=== PATIENT | male | born 1940 | race Caucasian/White ===

== ENCOUNTER 2021-10-12 11:25 | Outpatient (CLI) | payer MEDICARE, SELFPAY ==
[2021-10-12 12:13] LABS: Hematocrit 48.9 % (42.0-52.0); Hemoglobin 15.9 g/dL (14.0-18.0); Mean Corpuscular HGB Conc 32.5 g/dl (32-36); Mean Corpuscular Hemoglobin 31.8 pg (26-34); Mean Corpuscular Volume 97.8 fl (80-100); Mean Platelet Volume 9.7 fl (7.4-10.4); Platelet Count Result 309 k/mm3 (150-375); Red Cell Distribution Width 13.1 % (11.5-14.5); White Blood Count 9.4 K/mm3 (4.5-10.0)
[2021-10-12 12:23] LABS: Alanine Aminotransferase 20 U/L (4-50); Albumin Level 4.3 g/dL (3.5-5.1); Alkaline Phosphatase 63 U/L (38-126); Anion Gap 6 mmol/L (8-16); Aspartate Amino Transferase 24 U/L (17-59); Bilirubin,Total 0.4 mg/dL (0.2-1.3); Blood Urea Nitrogen 17 mg/dL (9-20); Calcium 9.5 mg/dL (8.4-10.2); Carbon Dioxide 30 mmol/L (22-30); Chloride 99 mmol/L (98-107); Cholesterol 167 mg/dL (0-200); Estimated Glomerular Filt Rate > 60; Glucose 107 mg/dL (65-110); HDL Direct 46 mg/dL; Potassium 4.6 mmol/L (3.4-5.0); Sodium 135 mmol/L (137-145); Triglycerides 54 mg/dL (<150)
[2021-10-12 12:34] LABS: LDL Cholesterol Direct 101 mg/dL
[2021-10-12 12:54] LABS: Prostate Specific Antigen 2.2 ng/mL (< OR = 4.0)
[2021-10-12 13:08] LABS: Vitamin D 25 Hydroxy 52.5 ng/mL
[2021-10-12 14:16] LABS: Creatinine Urine 38.5 mg/dL
[2021-10-12 14:20] LABS: MALB Creatinine Ratio 23.1 mg/g (0-30); Microalbumin Urine Random 8.9 mg/L (0-16.7)
[2021-10-12 14:27] LABS: Hemoglobin A1C 5.9 % (<5.7)
== END 2021-10-12 11:26 | disposition home or self-care (01) ==
LOC: ANHLAB 11:31
PROVIDERS: PCP Family Medicine; Visit Provider Family Medicine
DX: E11.9 Type 2 diabetes mellitus without complications (principal); I10 Essential (primary) hypertension; E78.2 Mixed hyperlipidemia; Z13.220 Encounter for screening for lipoid disorders; Z12.5 Encounter for screening for malignant neoplasm of prostate; E55.9 Vitamin D deficiency, unspecified
CPT/HCPCS: 36415; 80048; 80061; 80076; 82043; 82306; 83036; 84153; 84443; 85027; G0103

== ENCOUNTER 2021-11-23 12:10 | Outpatient (CLI) | payer MEDICARE, SELFPAY ==
--- NOTE | ~2021-11-23 | MR_ITS ---
EXAMINATION: MR brain/brain stem wo con DATE: 11/23/2021 13:29 INDICATION: Dizziness. Unsteady gait. TECHNIQUE: Magnetic resonance imaging (MRI) of the brain and brainstem was performed without intraven ous contrast. Sequences included sagittal and axial T1-weighted FSE, axial diffusion-weighted FS EPI, axial T2*-weighted GRE, axial T2-weighted FLAIR Propeller, and axial T2-weighted Propeller. Apparent diffusion coefficient (ADC) maps were created. COMPARISON: Head CT 09/18/2004 FINDINGS: There are scattered areas of nonspecific increased T2-weighted signal intensity in the cere bral white matter, which is within normal limits for the patient's age. There is no intracranial hemo rrhage, acute infarction, or abnormal intracranial mass lesion. The ventricles are normal in size. Th ere are changes of right mastoidectomy. There are likely changes of right ocular lens replacement christine kane. There is mild mucosal thickening in the paranasal sinuses. IMPRESSION: 1. Normal aging brain. Reviewed, dictated and finalized at location B. [employer] CARE MANAGER IMPRESSION: 1. Normal aging brain.
== END 2021-11-23 12:11 | disposition home or self-care (01) ==
PROVIDERS: PCP Family Medicine; Visit Provider Family Medicine
DX: R42 Dizziness and giddiness (principal); R26.81 Unsteadiness on feet; R06.02 Shortness of breath; S20.212A Contusion of left front wall of thorax, initial encounter
CPT/HCPCS: 70551

== ENCOUNTER 2022-01-31 00:14 | Day surgery (SDC) | payer MEDICARE, SELFPAY ==
[2022-01-19 14:11] VITALS: BMI 36.1
--- NOTE | 2022-01-31 09:15 | WPDANESEPPF ---
Anes - Initial Pre Proc Eval Procedure: Operation Date: 01/31/22 13:00 Proposed Procedures p Colonoscopy - Mannie Gerber MD Date/Time: 01/31/22 09:15 Surgeon: Mannie Gerber MD Pre Op Diagnosis: fecal incontinence Patient Data Age: 81 Gender: M Height: 1.7 m Weight: 104.5 kg Allergies Allergy/AdvReac Type Severity Reaction Status Date / Time No Known Allergies Allergy Unknown Verified 01/31/22 11:45 Home Medications Medication Instructions Recorded Confirmed Type aspirin 325 mg tablet,delayed 325 mg PO DAILY 10/12/19 01/31/22 History release fluticasone propionate 50 2 spray INTRANASAL DAILY #15.8 ml 12/01/20 01/31/22 Rx mcg/actuation nasal spray,suspension albuterol sulfate 90 mcg/actuation 2 inh INHALATION Q6H PRN g 04/06/21 01/31/22 History aerosol inhaler blood-glucose meter #1 ea 04/06/21 01/31/22 Rx blood sugar diagnostic #100 ea 04/17/21 01/31/22 Rx budesonide 160 mcg-glycopyr 9 2 inh INHALATION BID 04/28/21 01/31/22 History mcg-formot 4.8 mcg/actuation HFA inhaler azelastine 205.5 mcg (0.15 %) 2 spray INTRANASAL DAILY #30 ml 11/13/21 01/31/22 Rx nasal spray empagliflozin 10 mg-metformin ER See Rx Instructions .ROUTE 11/28/21 01/31/22 Rx 1,000 mg tablet,extended release .COMPLEX #90 tablet 24hr pravastatin 80 mg tablet 80 mg PO DAILY #90 tablet 12/14/21 01/31/22 Rx dextroamphetamine-amphetamine 30 15 mg PO BID #60 tablet 01/09/22 01/31/22 Rx mg tablet metformin 500 mg PO DAILY 01/19/22 01/31/22 History Patient hx anesthesia problems: none Family hx anesthesia problems: none Results Review: All pre-operative results and documents have been reviewed as part of the pre-operative evaluation. 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 Obstructive sleep apnea (adult) (pediatric) MANNY on CPAP Postnasal drip Shoulder pain Stool incontinence Type 2 diabetes mellitus with hyperglycemia, without long-term current use of insulin Unsteady gait Vitamin D deficiency Family History Family History Mother Family history of diabetes mellitus in first degree relative Social History Social History Smoking status: Former smoker Tobacco type: cigarettes Smoking end date: 11/25/91 Additional smoking assessment comments: Quit smoking 20 years ago Alcohol intake: never Substance use: never Substance use type: does not use Living arrangements: alone Gender identity (if verbalized by the patient): Male Sexual Orientation (if Verbalized by the Patient): Straight or Heterosexual Spiritual care concerns: No Agree to blood products: Yes Anes - Eval Final PreProcedure Day of Procedure 01/31/22 09:15 Patient weight: obese Heart: regular rate and rhythm Lungs: clear to auscultation and normal air movement Airway: Mallampati scale class II Neurological: alert and oriented Last oral intake: >/= 8 hours ASA classification: III Emergent: no Anesthetic plan: proceed Anesthesia type and monitoring: general GIVS Results Review: All pre-operative results and documents have been reviewed as part of the pre-operative evaluation. Informed Consent: The patient's anesthetic plan and its attendant risks and benefits were discussed with the patient/family/POA. Questions were solicited and answers provided to the satisfaction of the patient/family/POA.
[2022-01-31 11:35] VITALS: BP 118/81; PULSE 54; RESP 20; TEMP 36.2; O2SAT 94; BMI 34.2
[2022-01-31] MEDS: LACTATED RINGERS 1,000 ML 150 ML IV CONT (12:06)
[2022-01-31 12:10] LABS: Glucose Point of Care 152 mg/dl (65-105)
--- NOTE | 2022-01-31 12:33 | PM.HPGS ---
History of Present Illness History of Present Illness Consent: Risks, benefits, and alternatives have been discussed and questions answered. Patient agrees to proceed with procedure. Chief complaint: fecal incontinence Narrative: Jonah Thomas is a 81 year old male with hx of DM, COPD, HLD is referred to office by Dr. Bonilla for evaluation of intermittent fecal incontinence. States symptoms started 3 years ago, first time this happened he was sitting in a chair while camping. Then he had a second and third incident about a month ago while he was changing his clothes, one of the episodes he reports watery stools. He reports one BM daily, stools range from soft formed stools to mild constipation which is normal for him. Aside from the one episode of loose stool a month ago, he rarely has diarrhea. He can not identify in triggering factors. He denies any perianal numbness or tingling, no numbness or tingling in upper thighs. No hx of back injuries or surgeries. Denies any urinary incontinence. He denies any new medication or changes in medication. 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 Obstructive sleep apnea (adult) (pediatric) MANNY on CPAP Postnasal drip Shoulder pain Stool incontinence Type 2 diabetes mellitus with hyperglycemia, without long-term current use of insulin Unsteady gait Vitamin D deficiency Family History Family History Mother Family history of diabetes mellitus in first degree relative Social History Social History Smoking status: Former smoker Tobacco type: cigarettes Smoking end date: 11/25/91 Additional smoking assessment comments: Quit smoking 20 years ago Alcohol intake: never Substance use: never Substance use type: does not use Living arrangements: alone Gender identity (if verbalized by the patient): Male Sexual Orientation (if Verbalized by the Patient): Straight or Heterosexual Spiritual care concerns: No Agree to blood products: Yes Meds Home Medications and Allergies Home Medications Medication Instructions Recorded Confirmed Type aspirin 325 mg tablet,delayed 325 mg PO DAILY 10/12/19 01/31/22 History release fluticasone propionate 50 2 spray INTRANASAL DAILY #15.8 ml 12/01/20 01/31/22 Rx mcg/actuation nasal spray,suspension albuterol sulfate 90 mcg/actuation 2 inh INHALATION Q6H PRN g 04/06/21 01/31/22 History aerosol inhaler blood-glucose meter #1 ea 04/06/21 01/31/22 Rx blood sugar diagnostic #100 ea 04/17/21 01/31/22 Rx budesonide 160 mcg-glycopyr 9 2 inh INHALATION BID 04/28/21 01/31/22 History mcg-formot 4.8 mcg/actuation HFA inhaler azelastine 205.5 mcg (0.15 %) 2 spray INTRANASAL DAILY #30 ml 11/13/21 01/31/22 Rx nasal spray empagliflozin 10 mg-metformin ER See Rx Instructions .ROUTE 11/28/21 01/31/22 Rx 1,000 mg tablet,extended release .COMPLEX #90 tablet 24hr pravastatin 80 mg tablet 80 mg PO DAILY #90 tablet 12/14/21 01/31/22 Rx dextroamphetamine-amphetamine 30 15 mg PO BID #60 tablet 01/09/22 01/31/22 Rx mg tablet metformin 500 mg PO DAILY 01/19/22 01/31/22 History Allergies Allergy/AdvReac Type Severity Reaction Status Date / Time No Known Allergies Allergy Unknown Verified 01/31/22 11:45 Vital Signs Vital Signs - 24 hr 01/31/22 11:35 Temperature 36.2 C L Pulse Rate 54 L Respiratory Rate 20 Blood Pressure 118/81 Pulse Oximetry 94 Exam Resp: A
[2022-01-31] MEDS: SIMETHICONE ORAL SUSPENSION 20 MG/0.3 ML 30 ML BOTTLE 0.6 ML IRRIGATION (12:54)
[2022-01-31 13:01] VITALS: BP 105/62; PULSE 68; RESP 23; O2SAT 95
[2022-01-31 13:11] VITALS: BP 124/68; PULSE 75; RESP 27; O2SAT 97
[2022-01-31 13:21] VITALS: BP 145/83; PULSE 70; RESP 24; O2SAT 96
== END 2022-01-31 13:33 | disposition home or self-care (01) ==
PROVIDERS: PCP Family Medicine; Visit Provider Internal Medicine Gastroenterology
PROC: 0DJD8ZZ Inspection of Lower Intestinal Tract, Via Natural or Artificial Opening Endoscopic (ICD-10-PCS; CPT 45378; principal; 2022-01-31 13:00)
DX: R15.9 Full incontinence of feces (principal); D12.0 Benign neoplasm of cecum; J44.9 Chronic obstructive pulmonary disease, unspecified; I10 Essential (primary) hypertension; E11.9 Type 2 diabetes mellitus without complications; E78.2 Mixed hyperlipidemia; F33.1 Major depressive disorder, recurrent, moderate; G47.33 Obstructive sleep apnea (adult) (pediatric); E55.9 Vitamin D deficiency, unspecified; Z79.51 Long term (current) use of inhaled steroids; Z79.84 Long term (current) use of oral hypoglycemic drugs; Z87.891 Personal history of nicotine dependence; E66.9 Obesity, unspecified; Z68.34 Body mass index [BMI] 34.0-34.9, adult
CPT/HCPCS: 45380; 82948; 88305; J2704; J7120

== ENCOUNTER 2023-02-05 13:30 | Outpatient (RCR) | payer MEDICARE, SELFPAY ==
--- NOTE | 2023-01-08 16:24 | PTOPEVAL1 ---
Assessment and note entered by Mario Viveros, PT Evaluation Information Assessment Status Evaluation Diagnosis unsteadiness on his feet Subjective Information Patient reports he does not feel like he has good balance. He has some vertigo and he admits he does not get up and move around much. When walking he will try to hold onto furniture or the wall if able. He states that he has not actually had any falls. Reports no N/T in his feet, but he does have inner ear issues that are messing with his balance some. Reported Pain Level Pain Score 0: Self Report Assessment PT Clinical Summary Archie is an 82 year old male coming into the clinic with a diagnosis of unsteadiness on his feet. He presents with some vestibular and oculomotor weakness/delays. The patient also has tightness in his lower body specifically hamstrings, and has endurance concerns. The patient should benefit from skilled physical therapy to work on balance, general and specifically oculomotor strengthening, stretching, lateral movements and high end balance activities. Plan of Care Interventions Electrical Stimulation,Gait Training,Hot Pack/Cold Pack,Manual Therapy,Neuro Re-education,Patient/ Caregiver Education,Therapeutic Activities, Therapeutic Exercise,Ultrasound PT Services Indicated Yes Treatment Frequency and 2x/wk for 4 weeks Duration These treatments will address the objective and functional deficits as defined above. The patient will be advanced safely and appropriately in order for the patient to progress towards his/her prior level of function. Additional exercises will be introduced and as well as a comprehensive home exercise program upon discharge, if needed, ?to ensure carryover of functional gains achieved in the clinic. This treatment plan has been reviewed and agreement upon by the patient.
--- NOTE | 2023-02-05 15:21 | PTOPDC ---
Assessment and note entered by Mario Viveros, PT Evaluation Information Assessment Status Discharge Diagnosis Unsteadiness on feet. Subjective Information Patient reports he has been doing his exercises more than not and is happy with how loose his hamstrings are and that he is not shuffling his feet as much as he was. He does think a lot of the balance and dizziness is from his inner ear issues and he reports he has many of those. Reported Pain Level Pain Score 0: Self Report Assessment PT Clinical Summary Archie is an 82 year old male coming into the clinic with a diagnosis of unsteadiness on feet. He has made improvements most notably with improved heel toe walking pattern decreasing his shuffling and decreased hamstring tightness. He did not meet his Tinetti score goal, but did increase by 7 points to go from high fall risk to moderate fall risk. Patient would like to be discharged with his HEP and try to work on his own. Plan of Care PT Services Indicated No Treatment Frequency and Discharged from skilled physical therapy. Duration
== END 2023-03-25 10:41 | disposition home or self-care (01) ==
LOC: ANHPT 13:30
PROVIDERS: PCP Family Medicine; Visit Provider Family Medicine
DX: R26.81 Unsteadiness on feet (principal)
CPT/HCPCS: 97110; 97116; 97140; 97161; 97530

== ENCOUNTER 2023-03-14 14:17 | Outpatient (CLI) | payer MEDICARE, SELFPAY ==
[2023-03-14 14:48] LABS: Basophils Absolute Auto 0.1 K/mm3 (0.0-0.1); Basophils Percent Auto 0.7 % (0.2-1.2); Eosinophils Absolute Auto 0.2 K/mm3 (0-0.3); Eosinophils Percent Auto 2.5 % (0-4.4); Hematocrit 51.1 % (42.0-52.0); Hemoglobin 16.7 g/dL (14.0-18.0); Immature Granulocyte Absolute 0.03 K/mm3 (0.00-0.031); Immature Granulocyte Percent A 0.3 % (0-0.5); Lymphocytes Absolute Auto 2.52 K/mm3 (0.9-3.2); Lymphocytes Percent Auto 26.6 % (18.3-44.2); Mean Corpuscular HGB Conc 32.7 g/dl (32-36); Mean Corpuscular Hemoglobin 32.6 pg (26-34); Mean Corpuscular Volume 99.6 fl (80-100); Mean Platelet Volume 9.6 fl (7.4-10.4); Monocytes Percent Auto 10.9 % (2.6-8.5); Neutrophils Absolute Auto 5.6 K/mm3 (1.3-6.7); Platelet Count Result 271 k/mm3 (150-375); Red Blood Count 5.13 M/mm3 (4.6-6.20); Red Cell Distribution Width 12.7 % (11.5-14.5); White Blood Count 9.5 K/mm3 (4.5-10.0)
[2023-03-14 14:59] LABS: Alanine Aminotransferase 28 U/L (6-50); Albumin Level 4.2 g/dL (3.5-5.1); Alkaline Phosphatase 54 U/L (38-126); Anion Gap 6 mmol/L (8-16); Aspartate Amino Transferase 27 U/L (17-59); Bilirubin,Total 0.7 mg/dL (0.2-1.3); Blood Urea Nitrogen 15 mg/dL (9-20); Calcium 9.1 mg/dL (8.4-10.2); Carbon Dioxide 31 mmol/L (22-30); Chloride 103 mmol/L (98-107); Cholesterol 203 mg/dL (0-200); Estimated Glomerular Filt Rate > 60; Glucose 130 mg/dL (65-110); HDL Direct 51 mg/dL; Potassium 4.6 mmol/L (3.4-5.0); Sodium 140 mmol/L (137-145); Triglycerides 85 mg/dL (<150)
[2023-03-14 15:10] LABS: LDL Cholesterol Direct 124 mg/dL
[2023-03-14 15:30] LABS: Prostate Specific Antigen 3.5 ng/mL (< OR = 4.0)
[2023-03-14 15:49] LABS: Hemoglobin A1C 6.3 % (<5.7)
[2023-03-14 15:53] LABS: Vitamin D 25 Hydroxy 27.8 ng/mL
[2023-03-14 19:30] LABS: Creatinine Urine 83.2 mg/dL
[2023-03-14 19:34] LABS: MALB Creatinine Ratio 70.6 mg/g (0-30); Microalbumin Urine Random 58.7 mg/L (0-16.7)
== END 2023-03-14 14:18 | disposition home or self-care (01) ==
PROVIDERS: PCP Family Medicine; Visit Provider Family Medicine
DX: I10 Essential (primary) hypertension (principal); E78.2 Mixed hyperlipidemia; E11.65 Type 2 diabetes mellitus with hyperglycemia; E55.9 Vitamin D deficiency, unspecified; Z13.220 Encounter for screening for lipoid disorders; Z12.5 Encounter for screening for malignant neoplasm of prostate
CPT/HCPCS: 36415; 80048; 80061; 80076; 82043; 82306; 83036; 84153; 84443; 85025; G0103

== ENCOUNTER 2023-05-07 11:14 | Outpatient (CLI) | payer MEDICARE, SELFPAY ==
--- NOTE | ~2023-05-07 | XR_ITS ---
EXAMINATION: XR ribs BI 3V w CXR 2V Exam Date/Time: 05/07/2023 11:40 CDT HISTORY: R07.81 - Pleurodynia, FALL 3 WKS AGO Comparison: 10/26/2019. RESULT: Lines, tubes, and devices: Cholecystectomy clips. Lungs and pleura: Senescent change. Bibasilar scar/atelectasis and prominent pericardial fat pads. Cardiothymic silhouette: Stable cardiomegaly. Other: No acute osseous or upper abdominal finding. Degenerative changes in the shoulders and spine. IMPRESSION: No acute cardiopulmonary process. No acute osseous finding in the ribs. Reviewed, dictated and finalized at location K.
== END 2023-05-07 11:15 | disposition home or self-care (01) ==
PROVIDERS: PCP Family Medicine; Visit Provider Physician Assistant Medical
DX: R07.81 Pleurodynia (principal)
CPT/HCPCS: 71046; 71110